=== PATIENT | female | born 1955 | race Caucasian/White ===

== ENCOUNTER 2018-04-21 15:25 | Outpatient (CLI) | payer BC | END 2018-04-21 15:26 | disposition home or self-care (01) | LOC: CTENTCT 15:25 | PROVIDERS: ATTEND Otolaryngology Plastic Surgery within the Head & Neck | DX: J01.81 Other acute recurrent sinusitis (principal) | CPT/HCPCS: 70486 ==

== ENCOUNTER 2018-05-02 11:48 | Outpatient (CLI) | payer BC | END 2018-05-02 11:49 | disposition home or self-care (01) | LOC: BICRAD 11:48 | PROVIDERS: ATTEND Physician Assistant | DX: I70.0 Atherosclerosis of aorta (principal) | CPT/HCPCS: 71046 ==

== ENCOUNTER 2018-10-03 13:00 | Outpatient (CLI) | payer MEDICARE, BC ==
--- NOTE | 2018-10-03 14:52 | RAD ---
CHEST 2 VIEW: HISTORY: Dyspnea. COMPARISON: Chest radiograph 2012. FINDINGS: Lungs are clear. No pneumothorax or effusion. Cardiac silhouette and mediastinal contours are withi n normal limits. Three-lead AICD/pacer is in normal position. IMPRESSION: No acute intrathoracic abnormality. POS: [facility]
== END 2018-10-03 13:01 | disposition home or self-care (01) ==
LOC: RAD 13:00
PROVIDERS: ATTEND Internal Medicine Pulmonary Disease
DX: R06.00 Dyspnea, unspecified (principal)
CPT/HCPCS: 71046

== ENCOUNTER 2019-07-18 10:36 | Outpatient (CLI) | payer MEDICARE, BC ==
--- NOTE | 2019-07-18 11:04 | RAD ---
PA AND LATERAL CHEST: HISTORY: Dyspnea. COMPARISON: 10/03/2018 FINDINGS: The heart size is at the upper limits of normal. The aorta is tortuous. A left-sided pacer device r emains in place. No focal areas of consolidation, pneumothoraces, or pleural effusions are seen. Th ere are mild degenerative changes in the spine. IMPRESSION: Stable examination. No acute process. POS: OFF
== END 2019-07-18 10:37 | disposition home or self-care (01) ==
LOC: RAD 10:36
PROVIDERS: ATTEND Internal Medicine Pulmonary Disease
DX: R06.00 Dyspnea, unspecified (principal)
CPT/HCPCS: 71046

== ENCOUNTER 2020-08-23 12:41 | Outpatient (CLI) | payer MEDICARE, BC ==
--- NOTE | 2020-08-23 13:56 | MMO ---
Bilateral MAMMO Bilat Screen [facility]. CLINICAL HISTORY: Patient is 65 years old and is seen for screening. The patient has the following family history of breast cancer: mother, at age 86. The patient has no personal history of cancer. VIEWS: The views performed were: bilateral craniocaudal with tomosynthesis and bilateral mediolateral oblique with tomosynthesis. FILMS COMPARED: The present examination has been compared to prior imaging studies performed at [facility] on 02/11/2016, and at [facility] on 06/07/2017, 07/11/2018 and 07/17/2019. This study has been interpreted with the assistance of computer-aided detection. MAMMOGRAM FINDINGS: There are scattered fibroglandular densities. There are benign appearing calcifications seen in both breasts. There are no suspicious masses, suspicious calcifications, or new areas of architectural distortion. IMPRESSION: THERE IS NO MAMMOGRAPHIC EVIDENCE OF MALIGNANCY. A ROUTINE FOLLOW-UP MAMMOGRAM IN 1 YEAR IS RECOMMENDED. THE RESULTS OF THIS EXAM WERE SENT TO THE PATIENT. ACR BI-RADS Category 2 - Benign finding MAMMOGRAPHY NOTE: 1. A negative mammogram report should not delay a biopsy if a dominant of clinically suspicious mass is present. 2. Approximately 10% to 15% of breast cancers are not detected by mammography. 3. Adenosis and dense breasts may obscure an underlying neoplasm. Reported by: LAVONNE PALACIO MD Electonically Signed: [id number]
== END 2020-08-23 12:42 | disposition home or self-care (01) ==
LOC: BICMAMMO 12:41
PROVIDERS: ATTEND Family Medicine
DX: Z12.31 Encounter for screening mammogram for malignant neoplasm of breast (principal); Z80.3 Family history of malignant neoplasm of breast
CPT/HCPCS: 77063; 77067

== ENCOUNTER 2021-09-02 13:19 | Outpatient (CLI) | payer MEDICARE, BC | END 2021-09-02 13:20 | disposition home or self-care (01) | LOC: BICMAMMO 13:19 | PROVIDERS: ATTEND Family Medicine | DX: Z12.31 Encounter for screening mammogram for malignant neoplasm of breast (principal); Z13.820 Encounter for screening for osteoporosis; E28.39 Other primary ovarian failure; M85.851 Other specified disorders of bone density and structure, right thigh; M85.852 Other specified disorders of bone density and structure, left thigh; Z80.3 Family history of malignant neoplasm of breast | CPT/HCPCS: 77063; 77067; 77080 ==

== ENCOUNTER 2021-11-04 15:43 | Outpatient (CLI) | payer MEDICARE, BC | END 2021-11-04 15:44 | disposition home or self-care (01) | LOC: CTENTCT 15:43 | PROVIDERS: ATTEND Otolaryngology Plastic Surgery within the Head & Neck | DX: J32.9 Chronic sinusitis, unspecified (principal) | CPT/HCPCS: 70486 ==

== ENCOUNTER 2021-11-05 10:57 | Outpatient (CLI) | payer MEDICARE, BC ==
[2021-11-06 01:00] LABS: SARS-CoV-2 PCR by NAA Not Detected (NotDetected)
== END 2021-11-05 10:58 | disposition home or self-care (01) ==
LOC: LABBT 10:57
PROVIDERS: ATTEND Internal Medicine Gastroenterology
DX: Z01.812 Encounter for preprocedural laboratory examination (principal); Z20.822 Contact with and (suspected) exposure to COVID-19
CPT/HCPCS: U0003; U0005

== ENCOUNTER 2021-11-10 07:01 | Day surgery (SDC) | payer MEDICARE, BC ==
[2021-11-07 09:39] VITALS: BMI 34.3
[2021-11-10] MEDS ORDERED: Famotidine/PF 20 mg/2ml Vial ONE (08:11)
[2021-11-10] MEDS ORDERED: PROPOFOL 200 MG/20 ML VIAL ONE (09:58)
[2021-11-10] MEDS ORDERED: Lidocaine 1% PF 5 ML VIAL ONE (09:58)
== END 2021-11-10 11:40 | disposition home or self-care (01) ==
LOC: SDC 07:01
PROVIDERS: ATTEND Internal Medicine Gastroenterology
PROC: 0DJ08ZZ Inspection of Upper Intestinal Tract, Via Natural or Artificial Opening Endoscopic (ICD-10-PCS; principal; 2021-11-10)
PROC: 0DBN8ZX Excision of Sigmoid Colon, Via Natural or Artificial Opening Endoscopic, Diagnostic (ICD-10-PCS; 2021-11-10)
PROC: 0DBL8ZX Excision of Transverse Colon, Via Natural or Artificial Opening Endoscopic, Diagnostic (ICD-10-PCS; 2021-11-10)
DX: Z12.11 Encounter for screening for malignant neoplasm of colon (principal); D12.3 Benign neoplasm of transverse colon; K63.5 Polyp of colon; K21.9 Gastro-esophageal reflux disease without esophagitis; I42.9 Cardiomyopathy, unspecified; I11.0 Hypertensive heart disease with heart failure; I50.20 Unspecified systolic (congestive) heart failure; Z79.899 Other long term (current) drug therapy; Z88.2 Allergy status to sulfonamides; Z95.810 Presence of automatic (implantable) cardiac defibrillator
CPT/HCPCS: 88305; J2704; S0028

== ENCOUNTER 2022-03-16 11:54 | Outpatient (CLI) | payer MEDICARE, BC | END 2022-03-16 11:55 | disposition home or self-care (01) | LOC: RAD 11:54 | PROVIDERS: ATTEND Internal Medicine Critical Care Medicine | DX: R06.02 Shortness of breath (principal); I51.7 Cardiomegaly | CPT/HCPCS: 71046 ==

== ENCOUNTER 2024-01-20 08:54 | Outpatient (CLI) | payer MEDICARE ==
[2024-01-20] MEDS ORDERED: Regadenoson 0.4 MG/5 ML SYRINGE ONE (10:08)
== END 2024-01-20 08:55 | disposition home or self-care (01) ==
LOC: NM 08:54
PROVIDERS: ATTEND Internal Medicine Cardiovascular Disease
DX: I25.10 Atherosclerotic heart disease of native coronary artery without angina pectoris (principal); I51.89 Other ill-defined heart diseases
CPT/HCPCS: 78452; 93017; A9502; J2785

== ENCOUNTER 2024-06-06 14:32 | Outpatient (CLI) | payer MEDICARE | END 2024-06-06 14:33 | disposition home or self-care (01) | LOC: RAD 14:32 | PROVIDERS: ATTEND Internal Medicine Critical Care Medicine | DX: R06.00 Dyspnea, unspecified (principal) | CPT/HCPCS: 71046 ==